=== PATIENT | male | born 1990 | race African-American/Black ===

== ENCOUNTER 2019-11-03 13:41 | Emergency (ER) | payer SELFPAY ==
[2019-11-03 13:55] VITALS: BP 136/89; PULSE 68; RESP 18; TEMP 36.4; O2SAT 100
--- NOTE | 2019-11-03 14:09 | ED.GENADULT ---
HPI - General Adult General Chief complaint: Upper Respiratory Infection Stated complaint: sore throat/vomiting/stomach pain/headache Time Seen by Provider: 11/03/19 14:09 Source: patient Mode of arrival: ambulatory Limitations: no limitations History of Present Illness HPI narrative: Manuel Vincent is a 29 yo male with no PMH who comes to express care for headache, sore throat, upper abdominal epigastric pain, . Has taken no medication for his headache, or for nausea. He has been taking vitamins [id number] and eating fruits and softer foods. He has no prior medical history but has not seen a physician in years Related Data Allergies Allergy/AdvReac Type Severity Reaction Status Date / Time No Known Allergies Allergy Verified 11/03/19 14:06 Review of Systems Review of Systems: Narrative: CONSTITUTIONAL: Denies fever, chills, sweats. Has headache EYES: Denies visual changes, redness, discharge. ENT: Denies rhinorrhea, congestion, sore throat, otalgia. CARDIOVASCULAR: Denies chest pain, palpitations, edema. RESPIRATORY: Denies dyspnea, wheezing, cough GASTROINTESTINAL: Has epigastric abdominal pain, nausea, vomiting, no diarrhea. GENITOURINARY: Denies dysuria, hematuria, abnormal discharge SKIN: Denies rash or itching. NEUROLOGIC: Denies numbness, or focal weakness. PSYCHIATRIC: Denies anxiety or depression. PMFSH Family History Family History Other No active medical problems Social History Social History Smoking status: Never smoker Gender identity (if verbalized by the patient): Male Comments At time of signature, I agree with nursing past medical, surgical, social and family history. There is no relevant family history pertinent to the presenting complaint. Exam Narrative: Exam Narrative: GENERAL: This is a well-nourished, well-developed patient, in no apparent distress. HEAD: normocephalic, atraumatic. EYES: Sclera clear/white. Vision is grossly intact. EARS: External ears normal, auditory canals clear and without drainage, TMs normal without perforation. Hearing grossly intact. NOSE: External nose normal with no obvious nasal discharge, nares without redness, no rhinorrhea. THROAT: Mucous membranes moist, posterior pharynx clear. No erythema NECK: Neck supple, non-tender CARDIOVASCULAR: Regular rate and rhythm without murmurs, gallops, or rubs. RESPIRATORY: Clear to auscultation. Breath sounds equal bilaterally. No wheezes, rales, or rhonchi. GASTROINTESTINAL: Abdomen soft, non-tender, nondistended. SKIN: warm, intact with no suspicious lesions or rash, good texture and turgor. NEURO: awake, alert, and oriented to person, place and time. There were no obvious focal neurologic abnormalities. Steady gait EXTREMITIES: Normal range of motion. No edema. BACK: Nontender without deformity Course Course Emergency Course: Strep swab-negative Given Toradol here Started on Protonix Follow-up with primary care physician- he needs to establish care Vital Signs Vital signs: Vital Signs Temperature 97.6 F 11/03/19 13:55 Pulse Rate 68 11/03/19 13:55 Respiratory Rate 18 11/03/19 13:55 Blood Pressure 136/89 11/03/19 13:55 Pulse Oximetry 100 11/03/19 13:55 Temperature 97.6 F 11/03/19 13:55 Pulse Rate 68 11/03/19 13:55 Respiratory Rate 18 11/03/19 13:55 Blood Pressure 136/89 11/03/19 13:55 Pulse Oximetry 100 11/03/19 13:55 Medical Decision Making Differential Diagnosis Differential Diagnosis: Epigastric pain versus GERD versus ulcer Headache versus migraine Vital Signs Vital Signs: Vital Signs Temperature 97.6 F 11/03/19 13:55 Pulse Rate 68 11/03/19 13:55 Respiratory Rate 18 11/03/19 13:55 Blood Pressure 136/89 11/03/19 13:55 Pulse Oximetry 100 11/03/19 13:55 Temperature 97.6 F 11/03/19 13:55 Pulse Rate 68 11/02
[2019-11-03] MEDS: KETOROLAC (*BKC) 60 MG/2 ML VIAL IM (14:21)
== END 2019-11-03 14:56 | disposition home or self-care (01) ==
PROVIDERS: Emergency Provider Nurse Practitioner
DX: R10.13 Epigastric pain (principal); G44.209 Tension-type headache, unspecified, not intractable
CPT/HCPCS: 87081; 87147; 87880; 96372; 99203; G0463; J1885